=== PATIENT | male | born 1975 | race Caucasian/White ===

== ENCOUNTER 2017-11-26 18:34 | Emergency (ER) | payer SELFPAY ==
[~2017-11-26] VITALS: Ht 182.9 cm; Wt 111.4 kg
[2017-11-26 19:15] VITALS: BP 158/95; TEMP 98.2
[2017-11-26 19:31] VITALS: PULSE 71
== END 2017-11-26 19:31 | disposition home or self-care (01) ==
LOC: COL.ER 18:34
DX: R19.7 Diarrhea, unspecified (principal)